=== PATIENT | female | born 1980 | race Caucasian/White ===

== ENCOUNTER 2020-10-02 08:57 | Inpatient (IN) ==
[2020-10-02] MEDS ORDERED: predniSONE 20 MG TABLET PO ONE (09:50)
[2020-10-02] MEDS ORDERED: Famotidine 20 MG TABLET PO ONE (09:51)
[2020-10-02] MEDS ORDERED: D5 IVC SCH (10:45)
[2020-10-02] MEDS ORDERED: WATER IVC SCH (10:45)
[2020-10-02] MEDS ORDERED: EPINEPHRINE IVC SCH (10:45)
[2020-10-02 13:41] LABS: Basophils % 0.3 %; Eosinophils % 0.1 %; Hematocrit 41.1 % (35.3-44.9); Hemoglobin 13.2 g/dL (11.5-15.4); Immature Granulocytes % 0.4 % (0-4); Lymphocytes # 2.1 K/mcL (0.6-4.6); Lymphocytes % 14.3 %; Mean Corpuscular HGB Conc 32.1 g/dL (31.6-35.5); Mean Corpuscular Hemoglobin 32.8 pg (28.0-33.3); Mean Platelet Volume 10.4 fL (9.4-12.4); Monocytes # 0.7 K/mcL (0.0-1.3); Monocytes % 4.5 %; Neutrophils # 11.6 K/mcL (1.6-8.9); Platelet Count 289 K/mcL (140-400); Red Blood Count 4.03 M/mcL (3.82-4.97); Red Cell Distribution Width 12.3 % (11.5-14.5); Segmented Neutrophils % 80.4 %; White Blood Count 14.5 K/mcL (4.3-11.1)
[2020-10-02 13:53] LABS: BUN/Creatinine Ratio 28 (6-26); Blood Urea Nitrogen 20 mg/dL (6-20); Calcium 9.2 mg/dL (8.6-10.3); Carbon Dioxide 25 mEq/L (23-29); Chloride 104 mEq/L (98-107); Glucose 179 mg/dL (70-105); Osmolality,Calculated 293 (280-300); Potassium 3.3 mEq/L (3.5-5.1); Sodium 138 mEq/L (136-145); eGFR For African Americans > 60 (> 60); eGFR For Non-African Americans > 60 (> 60)
[2020-10-02] MEDS ORDERED: EPINEPHrine 1 MG/ML VIAL IM PRN (15:01)
[2020-10-02] MEDS ORDERED: Naloxone 0.4 MG/ML INJ IVP PRN (15:01)
[2020-10-02] MEDS ORDERED: Ipratropium/Albuterol Neb 3 ML IH PRN (15:06)
[2020-10-02] MEDS: *HR* Heparin 5,000 UNIT/ML VIAL SQ SCH (18:23)
[2020-10-02] MEDS: methylPREDNISolone 125 MG/2 ML VIAL IVP SCH (18:23)
[2020-10-02] MEDS: Famotidine 20 MG/2 ML VIAL IVP SCH (18:24)
[2020-10-02] MEDS: Acetaminophen 325 MG TABLET PO PRN (19:28)
[2020-10-02] MEDS ORDERED: Ketorolac 30 MG/ML VIAL IVP ONE (21:50)
[2020-10-03 04:01] LABS: Basophils % 0.1 %; Hematocrit 38.7 % (35.3-44.9); Hemoglobin 12.7 g/dL (11.5-15.4); Immature Granulocytes % 0.6 % (0-4); Lymphocytes # 0.9 K/mcL (0.6-4.6); Lymphocytes % 7.7 %; Mean Corpuscular HGB Conc 32.8 g/dL (31.6-35.5); Mean Corpuscular Volume 100.5 fL (83.0-100.0); Mean Platelet Volume 10.6 fL (9.4-12.4); Monocytes # 0.5 K/mcL (0.0-1.3); Monocytes % 4.2 %; Neutrophils # 10.3 K/mcL (1.6-8.9); Platelet Count 268 K/mcL (140-400); Red Blood Count 3.85 M/mcL (3.82-4.97); Red Cell Distribution Width 12.5 % (11.5-14.5); Segmented Neutrophils % 87.4 %; White Blood Count 11.8 K/mcL (4.3-11.1)
[2020-10-03 04:25] LABS: Alanine Aminotransferase 13 Units/L (7-52); Albumin 4.1 g/dL (3.5-5.7); Albumin/Globulin Ratio 1.8 (1.1-2.2); Alkaline Phosphatase 37 Units/L (34-104); Aspartate Amino Transferase 12 Units/L (13-39); BUN/Creatinine Ratio 20 (6-26); Bilirubin,Direct 0.1 mg/dL (0.0-0.2); Bilirubin,Indirect 0.3 mg/dL (0.0-1.0); Bilirubin,Total 0.4 mg/dL (0.3-1.0); Blood Urea Nitrogen 12 mg/dL (6-20); Calcium 9.2 mg/dL (8.6-10.3); Carbon Dioxide 23 mEq/L (23-29); Chloride 107 mEq/L (98-107); Globulin 2.3 g/dL (2.4-3.5); Glucose 128 mg/dL (70-105); Osmolality,Calculated 287 (280-300); Phosphorous 3.2 mg/dL (2.7-4.5); Potassium 4.4 mEq/L (3.5-5.1); Sodium 138 mEq/L (136-145); Total Protein 6.4 g/dL (6.4-8.9); eGFR For African Americans > 60 (> 60); eGFR For Non-African Americans > 60 (> 60)
[2020-10-03] MEDS: methylPREDNISolone 125 MG/2 ML VIAL IVP SCH ×2 (06:47→17:30)
[2020-10-03] MEDS: Famotidine 20 MG/2 ML VIAL IVP SCH ×2 (06:47→17:31)
[2020-10-03] MEDS: *HR* Heparin 5,000 UNIT/ML VIAL SQ SCH ×2 (06:48→17:23)
[2020-10-03] MEDS: Acetaminophen 325 MG TABLET PO PRN (11:48)
[2020-10-03] MEDS ORDERED: EPINEPHrine 1 MG/ML VIAL IM PRN (13:14)
[2020-10-03] MEDS ORDERED: Acetaminophen 325 MG TABLET PO PRN (13:14)
[2020-10-03] MEDS ORDERED: Naloxone 0.4 MG/ML INJ IVP PRN (13:14)
[2020-10-03] MEDS ORDERED: Ipratropium/Albuterol Neb 3 ML IH PRN (13:14)
[2020-10-03] MEDS ORDERED: Ibuprofen 600 MG TABLET PO PRN (14:03)
[2020-10-03] MEDS: Loratadine 10 MG TABLET PO SCH ×2 (17:21→19:09)
[2020-10-04 05:08] LABS: VBG Ionized Calcium 1.25 mmol/L (1.15-1.35)
[2020-10-04 05:10] LABS: Basophils % 0.1 %; Hemoglobin 14.4 g/dL (11.5-15.4); Immature Granulocytes % 0.7 % (0-4); Lymphocytes # 1.1 K/mcL (0.6-4.6); Lymphocytes % 7.9 %; Mean Corpuscular HGB Conc 33.5 g/dL (31.6-35.5); Mean Corpuscular Volume 101.7 fL (83.0-100.0); Mean Platelet Volume 10.3 fL (9.4-12.4); Monocytes # 0.5 K/mcL (0.0-1.3); Neutrophils # 11.7 K/mcL (1.6-8.9); Platelet Count 245 K/mcL (140-400); Red Blood Count 4.23 M/mcL (3.82-4.97); Red Cell Distribution Width 12.6 % (11.5-14.5); Segmented Neutrophils % 87.3 %; White Blood Count 13.4 K/mcL (4.3-11.1)
[2020-10-04] MEDS: Famotidine 20 MG/2 ML VIAL IVP SCH (05:16)
[2020-10-04] MEDS: *HR* Heparin 5,000 UNIT/ML VIAL SQ SCH (05:16)
[2020-10-04] MEDS: methylPREDNISolone 125 MG/2 ML VIAL IVP SCH (05:17)
[2020-10-04 05:21] LABS: Alanine Aminotransferase 13 Units/L (7-52); Albumin 4.2 g/dL (3.5-5.7); Albumin/Globulin Ratio 1.6 (1.1-2.2); Alkaline Phosphatase 38 Units/L (34-104); Aspartate Amino Transferase 12 Units/L (13-39); BUN/Creatinine Ratio 24 (6-26); Bilirubin,Total 0.5 mg/dL (0.3-1.0); Blood Urea Nitrogen 15 mg/dL (6-20); Calcium 9.5 mg/dL (8.6-10.3); Carbon Dioxide 25 mEq/L (23-29); Chloride 106 mEq/L (98-107); Globulin 2.6 g/dL (2.4-3.5); Glucose 129 mg/dL (70-105); Magnesium 2.1 mg/dL (1.6-2.6); Osmolality,Calculated 289 (280-300); Phosphorous 3.3 mg/dL (2.7-4.5); Potassium 4.4 mEq/L (3.5-5.1); Sodium 138 mEq/L (136-145); Total Protein 6.8 g/dL (6.4-8.9); eGFR For African Americans > 60 (> 60); eGFR For Non-African Americans > 60 (> 60)
[2020-10-04 06:33] VITALS: TEMP 97.9
[2020-10-04] MEDS: Loratadine 10 MG TABLET PO SCH (09:06)
[2020-10-04 10:24] VITALS: BP 127/84; PULSE 92; O2SAT 96
[2020-10-06 10:30] LABS: ANA IgG by ELISA NONE DETECTED (None Detected); Thyroglobulin Antibody <0.9 IU/mL (0.0-4.0)
== END 2020-10-04 11:45 | disposition home or self-care (01) | DRG 916 ==
LOC: EMEROOARM 08:57 → ICNU 08:57 → SUATTDRO 15:13 → ICNU 15:40 → 3ANU 10-03 18:40
PROVIDERS: ADMIT Pharmacist; ATTEND Internal Medicine